=== PATIENT | male | born 1995 | race Caucasian/White ===

== ENCOUNTER 2020-11-27 14:46 | Emergency (ER) | payer OTHER ==
[~2020-11-27 14:46] MED LIST: IBUPROFEN800 MG PO; MEDROL 4MG DOSEP4 MG PO; PROAIR HFA8.5 GM INH; ZOFRAN4 MG PO
[2020-11-27] MEDS ORDERED: NORCO 5-325 TA1 EACH PO ×2 (15:51→19:14)
[2020-12-08] MEDS ORDERED: PERCOCET 7.5/321 TAB PO (11:22)
== END 2020-11-27 17:54 | disposition home or self-care (01) ==
LOC: FER 14:46
DX: S52.612A Displaced fracture of left ulna styloid process, initial encounter for closed fracture (principal); S52.502A Unspecified fracture of the lower end of left radius, initial encounter for closed fracture; F17.210 Nicotine dependence, cigarettes, uncomplicated; W23.0XXA Caught, crushed, jammed, or pinched between moving objects, initial encounter; Y92.89 Other specified places as the place of occurrence of the external cause; Y99.0 Civilian activity done for income or pay
CPT/HCPCS: 73100; 96372; J1170; J2550

== ENCOUNTER → 2020-12-08 | Day surgery (SDC) | payer OTHER ==
[~2020-12-08] MED LIST changes: +NORCO 5-325 TA1 EACH PO; +ONDANSETRON ODT4 MG PO; +PERCOCET 7.5/321 TAB PO
[2020-12-08 12:27] LABS: HCT 42.4 % (42.0-52.0); HGB 14.6 g/dl (13.2-18.0); MCH 29.4 pg (25.0-31.0); MCHC 34.4 g/dL (32.0-36.0); MCV 85.5 fL (78.0-100.0); MPV 9.3 fL (6.0-9.5); RBC 4.96 M/uL (4.70-6.00); RDW 13.3 % (11.5-14.0); WBC 5.1 K/uL (4.0-10.5)
== END | disposition home or self-care (01) ==
LOC: FAS 14:30
PROVIDERS: Legal Medicine
DX: S59.292A Other physeal fracture of lower end of radius, left arm, initial encounter for closed fracture (principal); S52.612A Displaced fracture of left ulna styloid process, initial encounter for closed fracture; G89.18 Other acute postprocedural pain; F17.210 Nicotine dependence, cigarettes, uncomplicated; W24.0XXA Contact with lifting devices, not elsewhere classified, initial encounter; Y92.89 Other specified places as the place of occurrence of the external cause; Y99.0 Civilian activity done for income or pay
CPT/HCPCS: 36415; 73100; 76000; C1713; J0690; J1170; J1885; J2250; J2704; J2795; J3010; J7120

== ENCOUNTER 2021-04-08 10:37 | Emergency (ER) | payer SELFPAY ==
[~2021-04-08 10:37] MED LIST changes: -ONDANSETRON ODT4 MG PO
[2021-04-08] MEDS ORDERED: ONDANSETRON ODT4 MG PO (14:13)
== END 2021-04-08 14:36 | disposition home or self-care (01) ==
LOC: FER 10:37
DX: F41.0 Panic disorder [episodic paroxysmal anxiety] (principal); F41.1 Generalized anxiety disorder; G89.29 Other chronic pain; R11.2 Nausea with vomiting, unspecified; R19.7 Diarrhea, unspecified; F17.210 Nicotine dependence, cigarettes, uncomplicated; Z88.8 Allergy status to other drugs, medicaments and biological substances; Z79.891 Long term (current) use of opiate analgesic
CPT/HCPCS: 99283; J1885

== ENCOUNTER → 2021-09-07 | Day surgery (SDC) | payer OTHER ==
[~2021-09-07] VITALS: Ht 188 cm; Wt 86.2 kg
[~2021-09-07] MED LIST changes: +ALPRAZOLAM1 MG PO; +CELEXA20 MG PO; +MYSOLINE50 MG PO; +NEURONTIN400 MG PO; +ONDANSETRON ODT4 MG PO; +TRAZODONE 100M100 MG PO
[2021-09-07 09:07] LABS: HCT 41.3 % (42.0-52.0); MCH 29.3 pg (25.0-31.0); MCHC 33.9 g/dL (32.0-36.0); MCV 86.4 fL (78.0-100.0); MPV 9.2 fL (6.0-9.5); RBC 4.78 M/uL (4.70-6.00); RDW 13.4 % (11.5-14.0); WBC 5.1 K/uL (4.0-10.5)
== END | disposition home or self-care (01) ==
LOC: FAS 08:04
PROVIDERS: Legal Medicine
DX: T84.84XA Pain due to internal orthopedic prosthetic devices, implants and grafts, initial encounter (principal); G89.18 Other acute postprocedural pain; F32.A Depression, unspecified; F41.9 Anxiety disorder, unspecified; F17.210 Nicotine dependence, cigarettes, uncomplicated; Z88.6 Allergy status to analgesic agent
CPT/HCPCS: 36415; 73100; 76000; J0690; J1100; J1170; J1885; J2250; J2405; J2704; J2795; J3010; J7120

== ENCOUNTER 2021-12-23 19:29 | Emergency (ER) | payer SELFPAY ==
[2021-12-23 21:11] LABS: ECSTASY (MDMA) NEGATIVE (NEGATIVE); MARIJUANA (THC) POSITIVE (NEGATIVE)
[2021-12-23 21:12] LABS: AMPHETAMINES NEGATIVE (NEGATIVE); BARBITURATES NEGATIVE (NEGATIVE); METHADONE NEGATIVE (NEGATIVE); OPIATES NEGATIVE (NEGATIVE); OXYCODONE POSITIVE (NEGATIVE)
[2021-12-23 23:50] LABS: BASOPHIL 0.5 % (0-2); EOSINOPHIL 3.7 % (0-5); HCT 39.1 % (42.0-52.0); LYMPHOCYTE 18.3 % (15-48); MCH 29.3 pg (25.0-31.0); MCHC 33.2 g/dL (32.0-36.0); MCV 88.3 fL (78.0-100.0); NEUTROPHIL 67.3 % (41-80); NRBC 0; PLT 217 K/uL (150-400); RBC 4.43 M/uL (4.70-6.00); WBC 8.9 K/uL (4.0-10.5)
[2021-12-24 00:16] LABS: BUN/CREAT RATIO (CALC) 8.7 RATIO; CREATININE 0.92 mg/dL (0.67-1.17); POTASSIUM 3.8 mmol/L (3.5-5.1)
== END 2021-12-24 01:59 | disposition home or self-care (01) ==
LOC: FER 19:29
PROVIDERS: Nurse Practitioner Family
DX: R41.82 Altered mental status, unspecified (principal); F17.210 Nicotine dependence, cigarettes, uncomplicated; Z88.1 Allergy status to other antibiotic agents
CPT/HCPCS: 36415; 36600; 70450; 71045; 80048; 80305; 82803; 85025; 93005; G0480; J2310; J2405; J7030